=== PATIENT | female | born 1985 | race Caucasian/White ===

== ENCOUNTER 2022-01-04 16:19 | Emergency (ER) | payer SELFPAY ==
[2022-01-04] MEDS ORDERED: LORazepam 1 MG Tab PO ONE (16:20)
[2022-01-04] MEDS ORDERED: MVI, Adult with Vitamin K 10 ML, Folic Acid 1 MG, Thiamine 100 MG in Lactated Ringers 1... IV ONE ×4 (18:38)
[2022-01-04] MEDS ORDERED: Ondansetron 4 MG/2 ML SDV IVPUSH ONE (18:48)
[2022-01-04] MEDS ORDERED: LORazepam 2 MG/ML SDV IVPUSH ONE (18:48)
[2022-01-04 19:32] LABS: ANION GAP 13.7 mEq/L (7-13)
[2022-01-04 21:23] LABS: AMPHETAMINES,URINE NEGATIVE (NEGATIVE); BARBITURATES,URINE NEGATIVE (NEGATIVE); BENZODIAZEPINE,URINE NEGATIVE (NEGATIVE); MDMA (ECSTASY), URINE NEGATIVE (NEGATIVE); METHADONE,URINE NEGATIVE (NEGATIVE); METHAMPHETAMINES,URINE NEGATIVE (NEGATIVE); OPIATES,URINE NEGATIVE (NEGATIVE); OXYCODONE,URINE NEGATIVE (NEGATIVE); PHENCYCLIDINE,URINE NEGATIVE (NEGATIVE); TCA,URINE NEGATIVE (NEGATIVE)
[2022-01-05] MEDS ORDERED: Ondansetron 4 MG Tab.DIS PO ONE (00:24)
[2022-01-05] MEDS ORDERED: LORazepam 1 MG Tab ONE (00:29)
[2022-01-05] MEDS ORDERED: LORazepam 1 MG Tab PO ONE (02:10)
== END 2022-01-05 02:18 | disposition other institution (70) ==
LOC: DL.ED 16:19
DX: F31.9 Bipolar disorder, unspecified (principal); F10.120 Alcohol abuse with intoxication, uncomplicated; Y90.8 Blood alcohol level of 240 mg/100 ml or more; Z20.822 Contact with and (suspected) exposure to COVID-19
CPT/HCPCS: 36415; 80053; 80143; 80305-QW; 80307; 81003; 81025; 82140; 82150; 83605; 83690; 83735; 85025; 96365; 96375; 99283; 99284-25; A9270-GY; J2060; J2405; J3411; J3490; J7120; U0002

== ENCOUNTER 2022-01-05 04:59 | Emergency (ER) | payer SELFPAY ==
[2022-01-05] MEDS ORDERED: Sodium Chloride 0.9% 1,000 ML IV ONE (05:23)
[2022-01-05 06:06] LABS: ANION GAP 14.4 mEq/L (7-13); CHLORIDE,CL 100 mmol/L (98-107); SODIUM,NA 138 mmol/L (136-145)
[2022-01-05 06:17] LABS: ESTIMATED GFR 96 mL/min (>=60)
[2022-01-05] MEDS ORDERED: LORazepam 1 MG Tab PO ONE (08:06)
[2022-01-05] MEDS ORDERED: Ondansetron 4 MG Tab.DIS PO ONE (08:06)
== END 2022-01-05 10:20 | disposition other institution (70) ==
LOC: DL.ED 04:59
DX: F10.930 Alcohol use, unspecified with withdrawal, uncomplicated (principal); Y90.1 Blood alcohol level of 20-39 mg/100 ml
CPT/HCPCS: 36415; 80053; 80307; 82140; 85025; 96360; 99285; A9270; J7030; 99283